=== PATIENT | male | born 1985 ===

== ENCOUNTER 2021-07-12 16:03 | Emergency (ER) | payer OTHER ==
--- NOTE | 2021-07-12 17:28 | EDM.PDOC ---
<Rusty Collier - Last Filed: 07/12/21 20:49> ED HPI GENERAL MEDICAL PROBLEM - General Chief Complaint: Respiratory Problem Stated Complaint: COVID POS, COUGHING UP BLOOD Time Seen by Provider: 07/12/21 17:10 - Related Data Allergies Allergy/AdvReac Type Severity Reaction Status Date / Time No Known Allergies Allergy Verified 11/05/13 09:26 Home Meds: Home Meds Cyclobenzaprine [Flexeril] PO Q6HR PRN 11/26/13 [History] Naproxen Sodium 05/29/14 [History] Benzonatate 200 mg PO TID PRN #10 capsule 07/12/21 [Rx] Benzonatate 200 mg PO TID PRN #10 capsule 07/12/21 [Rx] Course - Re-Assessments/Exams Free Text/Narrative Re-Assessment/Exam: 07/12/21 19:36 Patient resting comfortably. He plans to go home after hydration if his CT is negative for pulmonary embolus. His vital signs and oxygen saturation are stable. I accepted responsibility for the patient at the end of my partner shift at 7 PM. 07/12/21 20:49 Patient has mild orthostasis but not significant tonight. He passed out 3 days ago at onset of symptoms. He has hemoptysis totaling about a teacup over the last 2 days. Rather than be transferred to facility with pulmonology the patient chose to observe and come back if he is worse. Departure - Departure Time of Disposition: 20:40 Disposition: Home, Self-Care 01 Condition: Good Clinical Impression: Hemoptysis, Pneumonia due to COVID-19 virus - Discharge Information Prescriptions: Benzonatate 200 mg PO TID PRN #10 capsule PRN Reason: Cough Benzonatate 200 mg PO TID PRN #10 capsule PRN Reason: Cough Instructions: COVID-19 Vaccine Information, Hemoptysis, COVID-19: Quarantine vs. Isolation - [facility] (07/14/2020), COVID-19: What to Do If You Are Sick- [facility] (10/12/2020) Referrals: Ronald Wang MD [Primary Care Provider] - Forms: ED Department Discharge Additional Instructions: A prescription for medicine to reduce your cough was sent to [place] [facility] which is open until 10 PM tonight. Drink plenty of fluids Return if you are dizzy your or feel like you are going to pass out again or sweating we will repeat your labs. If you need a bronchoscopy you will be transferred to a facility with a case fitter. [facility] - Primary Care [address] [place] [id number] [facility] [address] [place] [address] The following information is given to patients seen in the emergency department who are being discharged to home. This information is to outline your options for follow-up care. We provide all patients seen in our emergency department with a follow-up referral. The need for follow-up, as well as the timing and circumstances, are variable depending upon the specifics of your emergency department visit. If you don't have a primary care physician on staff, we will provide you with a referral. We always advise you to contact your personal physician following an emergency department visit to inform them of the circumstance of the visit and for follow-up with them and/or the need for any referrals to a consulting specialist. The emergency department will also refer you to a specialist when appropriate. This referral assures that you have the opportunity for follow-up care with a specialist. All of these measure are taken in an effort to provide you with optimal care, which includes your follow-up. Under all circumstances we always encourage you to contact your private physician who remains a resource for coordinating your care. When calling for follow-up care, please make the office aware that this follow-up is from your recent emergency room visit. If for any reason you are refused follow-up, please contact the [facility] Emergency Department at and asked to speak to the emergency department charge nurse. <Jack Mcdaniel - Last Filed: 07/13/21 18:00> ED HPI GENERAL MEDICAL PROBLEM - History of Present Illness INITIAL COMMENTS - FREE TEXT/NARRATIVE: 35-year-old male presents with several days of cough and fevers and body aches and recently diagnosed with Covid. Not vaccinated. The patient states that the past several days he is coughing a significant amount of blood up. Patient has some chest tightness. Worse when he takes a deep breath in. No exacerbating relieving factors. Patient denies any leg swelling or history of blood clots. No recent travel or injury or cancer surgery. Patient denies TB exposures or recent homelessness or mcc. coughing Pain Score (Numeric/FACES): 5 Past Medical History HEENT History: Reports: None Cardiovascular History: Reports: None Respiratory History: Reports: None Gastrointestinal History: Reports: None Genitourinary History: Reports: None Musculoskeletal History: Reports: None Neurological History: Reports: None Psychiatric History: Reports: None Endocrine/Metabolic History: Reports: None Hematologic History: Reports: None Immunologic History: Reports: None Oncologic (Cancer) History: Reports: None Dermatologic History: Reports: None - Infectious Disease History Infectious Disease History: Reports: Chicken Pox - Past Surgical History Head Surgeries/Procedures: Reports: None HEENT Surgical History: Reports: None Cardiovascular Surgical History: Reports: None Respiratory Surgical History: Reports: None GI Surgical History: Reports: None Male Surgical History: Reports: None Endocrine Surgical History: Reports: None Neurological Surgical History: Reports: None Musculoskeletal Surgical History: Reports: None Oncologic Surgical History: Reports: None Dermatological Surgical History: Reports: None Social & Family History - Family History Family Medical History: No Pertinent Family History - Caffeine Use Caffeine Use: Reports: None - Recreational Drug Use Recreational Drug Use: No ED ROS GENERAL - Review of Systems Review Of Systems: Comprehensive ROS is negative, except as noted in HPI. ED EXAM, GENERAL - Physical Exam Exam: See Below Free Text/Narrative:: CONSTITUTIONAL: well appearing in no acute distress SKIN: dry, and intact without rash HENT: Normocephalic, atraumatic, NECK: normal range of motion PULMONARY: normal chest rise and fall, no respiratory distress or stridor. No rales or rhonchi or wheezing NEUROLOGIC: normal speech, moves all extremities, grossly non-focal MUSCULOSKELETAL: no gross deformities, atraumatic PSYCHIATRIC: normal mood and affect Course - Vital Signs Text/Narrative:: Differential diagnosis: Covid, PE, TB, bronchitis, bacterial pneumonia, other Patient presents with shortness of breath, cough and bloody sputum in the setting of Covid. Patient with some leukopenia and mild LFT elevation. CT of the chest pending rule out PE. Final treatment and disposition as per Dr. Collier, SBAR 7 PM Last Recorded V/S: Last Vital Signs Temp 36.7 C 07/12/21 17:09 Pulse 74 07/12/21 21:10 Resp 18 07/12/21 21:10 BP 131/86 07/12/21 21:10 Pulse Ox 98 07/12/21 21:10 - Orders/Labs/Meds Labs: Laboratory Tests 07/12/21 07/12/21 07/12/21 Range/Units 17:29 17:29 17:29 WBC 1.94 L (4.0-11.0) K/uL RBC 5.12 (4.50-5.90) M/uL Hgb 15.6 (13.0-17.0) g/dL Hct 44.7 (38.0-50.0) % MCV 87.3 (80.0-98.0) fL MCH 30.5 (27.0-32.0) pg MCHC 34.9 (31.0-37.0) g/dL RDW Std Deviation 41.2 (28.0-62.0) fl RDW Coeff of Dell 13 (11.0-15.0) % Plt Count 113 L (150-400) K/uL MPV 10.10 (7.40-12.00) fL Add Manual Diff YES Neutrophils % (Manual) 40 L (48.0-80.0) % Band Neutrophils % 52 % Lymphocytes % (Manual) 8 L (16.0-40.0) % Nucleated RBC % 0.0 /100WBC Absolute Seg Neuts 0.8 L (1.4-5.7) Band Neutrophils # 1.0 Lymphocytes # (Manual) 0.2 L (0.6-2.4) Nucleated RBCs # 0 K/uL Platelet Estimate DECREASED INR 0.92 Sodium 138 (136-148) mmol/L Potassium 4.1 (3.5-5.1) mmol/L Chloride 99 (98-107) mmol/L Carbon Dioxide 30.0 (21.0-32.0) mmol/L BUN 10 (7.0-18.0) mg/dL Creatinine 0.9 (0.8-1.3) mg/dL Est Cr Clr Drug Dosing 139.53 mL/min Estimated GFR (MDRD) > 60.0 ml/min Glucose 115 H (74-106) mg/dL Calcium 9.2 (8.5-10.1) mg/dL Total Bilirubin 0.2 (0.2-1.0) mg/dL AST 364 H (15-37) IU/L ALT 408 H (14-63) IU/L Alkaline Phosphatase 71 (46-116) U/L Troponin I < 0.050 (0.000-0.056) ng/mL B-Natriuretic Peptide (<100) PG/ML Total Protein 7.3 (6.4-8.2) g/dL Albumin 3.8 (3.4-5.0) g/dL Globulin 3.5 (2.6-4.0) g/dL Albumin/Globulin Ratio 1.1 (0.9-1.6) 07/12/21 Range/Units 17:29 WBC (4.0-11.0) K/uL RBC (4.50-5.90) M/uL Hgb (13.0-17.0) g/dL Hct (38.0-50.0) % MCV (80.0-98.0) fL MCH (27.0-32.0) pg MCHC (31.0-37.0) g/dL RDW Std Deviation (28.0-62.0) fl RDW Coeff of Dell (11.0-15.0) % Plt Count (150-400) K/uL MPV (7.40-12.00) fL Add Manual Diff Neutrophils % (Manual) (48.0-80.0) % Band Neutrophils % % Lymphocytes % (Manual) (16.0-40.0) % Nucleated RBC % /100WBC Absolute Seg Neuts (1.4-5.7) Band Neutrophils # Lymphocytes # (Manual) (0.6-2.4) Nucleated RBCs # K/uL Platelet Estimate INR Sodium (136-148) mmol/L Potassium (3.5-5.1) mmol/L Chloride (98-107) mmol/L Carbon Dioxide (21.0-32.0) mmol/L BUN (7.0-18.0) mg/dL Creatinine (0.8-1.3) mg/dL Est Cr Clr Drug Dosing mL/min Estimated GFR (MDRD) ml/min Glucose (74-106) mg/dL Calcium (8.5-10.1) mg/dL Total Bilirubin (0.2-1.0) mg/dL AST (15-37) IU/L ALT (14-63) IU/L Alkaline Phosphatase (46-116) U/L Troponin I (0.000-0.056) ng/mL B-Natriuretic Peptide 4 (<100) PG/ML Total Protein (6.4-8.2) g/dL Albumin (3.4-5.0) g/dL Globulin (2.6-4.0) g/dL Albumin/Globulin Ratio (0.9-1.6) Meds: Medications Discontinued Medications Generic Name Dose Route Start Last Admin Trade Name Freq PRN Reason Stop Dose Admin Sodium Chloride 1,000 mls @ 1,000 mls/hr 07/12/21 19:35 07/12/21 19:40 Normal Saline IV 07/12/21 20:34 1,000 mls/hr .Bolus ONE Administration Iopamidol 100 ml 07/12/21 18:47 07/12/21 18:48 Iopamidol 755 Mg/Ml 500 Ml Multipack Bottle IVPUSH 07/12/21 18:48 100 ml ONETIME STA Administration Sepsis Event Note (ED) - Evaluation Sepsis Screening Result: No Definite Risk
--- NOTE | 2021-07-12 18:13 | CR ---
INDICATION: Chest pain, COVID TECHNIQUE: Chest 1 view. COMPARISON: None FINDINGS: Cardiovascular and mediastinum: Heart size and vasculature are normal in caliber and appearance. Mediastinum is within normal limits. Lungs and pleural space: Bilateral patchy pulmonary infiltrates. No sign of pleural effusion. No pneumothorax. Bones and soft tissues: No significant findings. IMPRESSION: Bilateral patchy pulmonary infiltrates. Dictated by Noe Chaparro MD @ 07/12/2021 6:12:35 PM (Electronically Signed)
[2021-07-12 18:20] LABS: BLOOD UREA NITROGEN,BUN 10 mg/dL (7.0-18.0); CHLORIDE,CL 99 mmol/L (98-107); GLUCOSE RANDOM 115 mg/dL (74-106); POTASSIUM,K 4.1 mmol/L (3.5-5.1); SODIUM,NA 138 mmol/L (136-148)
[2021-07-12] MEDS ORDERED: Iopamidol 755 MG/ML 500 ML Multipack Bottle IVPUSH STA (18:47)
[2021-07-12] MEDS ORDERED: Sodium Chloride 0.9% 1,000 ML IV ONE (19:35)
--- NOTE | 2021-07-12 19:45 | CT ---
INDICATION: Hemoptysis. TECHNIQUE: CT chest PE was acquired with 100 cc Isovue 370 IV contrast. COMPARISON: None. FINDINGS: Heart and vasculature: Contrast opacification of the pulmonary arterial tree is adequate. No sign of pulmonary embolism. Heart size is normal. Thoracic aorta and pulmonary artery are normal in caliber. Lungs and pleural: Multiple patchy bilateral diffuse ground-glass infiltrates appear no pleural effusions, pleural thickening, or pneumothorax. Lymph nodes/mediastinum: No mediastinal, hilar, or axillary adenopathy. Chest wall: No masses. Upper abdomen: No acute or significant findings. Bones: Unremarkable for age. IMPRESSION: 1. No pulmonary embolism. 2. Patchy bilateral ground-glass nodular infiltrates consistent with COVID pneumonitis of moderate severity. Please note that all CT scans at this facility use dose modulation, iterative reconstruction, and/or weight-based dosing when appropriate to reduce radiation dose to as low as reasonably achievable. Dictated by Hai Cooley MD @ 07/12/2021 7:45:11 PM (Electronically Signed)
== END 2021-07-12 21:10 | disposition home or self-care (01) ==
LOC: MW.ED 16:03
DX: U07.1 COVID-19 (principal); J12.82 Pneumonia due to coronavirus disease 2019; R04.2 Hemoptysis
CPT/HCPCS: 36415; 71045; 71275; 80053; 83880; 84484; 85025; 85610; 99285; J7030; Q9967